=== PATIENT | female | born 1985 | race Caucasian/White ===

== ENCOUNTER 2021-07-09 08:02 | Day surgery (SDC) | payer OTHER ==
[~2021-07-09] VITALS: Ht 165.1 cm; Wt 142.9 kg
[~2021-07-09 08:02] MED LIST: VENTOLIN HFA INH8 GM INH
[2021-07-09 09:41] VITALS: BP 153/96
[2021-07-09] MEDS ORDERED: ACETAMINOPHEN325 M1 PO (11:58)
[2021-07-09] MEDS ORDERED: TRAMADOL 50 MG50 MG PO (11:58)
[2021-07-09] MEDS ORDERED: IBUPROFEN 200200 M1 PO (11:58)
[2021-07-09] MEDS ORDERED: MIRALAX17 GM PO (11:59)
[2021-07-09] MEDS ORDERED: COLACE 100 MG100 MG PO (11:59)
[2021-07-09 12:33] VITALS: BP 153/96
--- NOTE | 2021-07-13 12:07 | PATH ---
[facility] [address] [place] [address] PATHOLOGY RPT PROCEDURE Name: BRITTNEY MONTEZ Room #: DEP [facility] M.R.#: [id number] Admission: 07/09/21 Date of : 87 Discharge: 07/09/21 Report #: [id number] Path Case #: [id number] Accession Number: [id number] . 01 Material submitted: . gallbladder - GALLBLADDER . 01 Clinical history: . LAPAROSCOPIC CHOLECYSTECTOMY W/GRAM BILIARY COLIC . 02 Diagnosis: Gallbladder, cholecystectomy: - Mild chronic cholecystitis. (IUV:pit; 07/12/2021) . QTP 07/12/2021 1212 Local . 02 Electronically signed: . Navya Ren MD, Pathologist NPI- [id number] . 01 Gross description: . Fixative: Formalin Labeled: Gallbladder Specimen received: Intact gallbladder Dimensions: 8.0 x 2.9 x 2.5 cm Serosa: Purple-patel, smooth to slightly roughened Lymph node: None identified Mucosa: Velvety, bile-stained with mild yellow streaking Average wall thickness: 0.1 cm Calculi: None present Abnormalities: None identified . A1- [employer]ist body, fundus, and the cystic duct margin. ([facility]; 07/09/2021) NRI/NRI 07/09/20212036 Local . 02 Pathologist provided ICD-10: K81.1 . 02 CPT . 291243 Specimen Comment: A courtesy copy of this report has been sent to [phone], [phone] Specimen Comment: [phone] Specimen Comment: Report sent to , DR PICHARDO [address] [address] PATHOLOGY RPT PROCEDURE Name: BRITTNEY MONTEZ [facility] Room #: DEP [facility].#: [id number] Admission: 07/09/21 Date of : 87 Discharge: 07/09/21 Report #: [id number] Path Case #: [id number] Specimen Comment: A duplicate report has been generated due to demographic updates. Performed at: [address] [facility] [address], [place] [id number] MD Anmol Houser MD Phone: [phone] Performed at: [address] [id number] MD Navya Ren MD Phone: [phone]
== END 2021-07-09 15:25 | disposition home or self-care (01) ==
LOC: OR 08:02 → TBA 08:12 → OR 10:52
PROVIDERS: ATTEND Surgery
DX: K81.1 Chronic cholecystitis (principal); J45.909 Unspecified asthma, uncomplicated; E66.01 Morbid (severe) obesity due to excess calories; K21.9 Gastro-esophageal reflux disease without esophagitis; Z98.890 Other specified postprocedural states; Z79.899 Other long term (current) drug therapy; Z87.442 Personal history of urinary calculi; Z88.8 Allergy status to other drugs, medicaments and biological substances; Z91.040 Latex allergy status; Z68.43 Body mass index [BMI] 50.0-59.9, adult
CPT/HCPCS: 50010; 50101; 50411; 50555; 52265; 52266; 53307; 53310; 53312; 54022; 54118; 55245; 56462; 56522; 56525; 56674; 58574; 58910; 62110; 62900; 70005